=== PATIENT | male | born 1990 | race Caucasian/White ===

== ENCOUNTER 2017-07-31 14:51 | Emergency (ER) | payer SELFPAY ==
[~2017-07-31] VITALS: Ht 165.1 cm; Wt 55.0 kg
[2017-07-31 14:58] VITALS: BP 118/81; PULSE 63; RESP 21; TEMP 97.2; O2SAT 98
== END 2017-07-31 16:57 | disposition left against medical advice (07) ==
LOC: NED 14:51
DX: R11.10 Vomiting, unspecified (principal)
CPT/HCPCS: 99281